=== PATIENT | male | born 1970 | race Caucasian/White ===

== ENCOUNTER 2020-11-25 23:05 | Emergency (ER) | payer BC ==
[~2020-11-25 23:05] MED LIST: ASPIRIN81 MG PO; IBUPROFEN800 MG PO; PERCOCET 5-3251 EACH PO; PREDNISONE 10 M10 MG PO; PROTONIX 40 MG40 M1 PO
== END 2020-11-26 01:40 | disposition home or self-care (01) ==
LOC: ER1 23:05
DX: J06.9 Acute upper respiratory infection, unspecified (principal); Z98.84 Bariatric surgery status; Z20.822 Contact with and (suspected) exposure to COVID-19
CPT/HCPCS: 0240U; 71045; 87081; 87880; 99283